=== PATIENT | male | born 1990 | race Caucasian/White ===

== ENCOUNTER 2016-09-24 10:40 | Emergency (ER) | payer MEDICAID, OTHER ==
[~2016-09-24] VITALS: Ht 172.7 cm; Wt 77.1 kg
[~2016-09-24 10:40] MED LIST: ASPIRIN; CEPH-38 PO; CYCL10TA9 PO; HYDR1TAB PO; IBUP-30 PO; IBUPROFEN; NAPR-243 PO; PENI500T PO; TRM50T PO
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
[2016-09-24] MEDS ORDERED: HYDROcodone/APAP 5 MG/325 MG (LORTAB) TAB PO STA (12:28)
[2016-09-24] MEDS ORDERED: BSS 15 ML IR ONE (12:30)
[2016-09-24] MEDS ORDERED: FLUORESCEIN (FLUOR-I-STRIPS) 1 MG STRP OU ONE (12:30)
[2016-09-24] MEDS ORDERED: TETRACAINE 0.5% OPHTH SOLN 15 ML BTL OU ONE (12:30)
[2016-09-24] MEDS ORDERED: RX-GENTAMICIN SULFATE 0.3% OP 5 ML BTL OP STA (12:45)
[2016-09-24] MEDS ORDERED: HYDR-3812 PO (12:49)
[2016-09-24] MEDS ORDERED: TETANUS,DIPTH,PERTUSS P/F (BOOSTRIX) 0.5 ML VIAL IM STA (12:50)
[2016-09-24 13:09] VITALS: BP 131/95
[2016-09-25] MEDS ORDERED: BSS 15 ML ONE (06:51)
[2016-09-25] MEDS ORDERED: TETRACAINE 0.5% OPHTH SOLN 15 ML BTL ONE (06:51)
== END 2016-09-24 13:09 | disposition home or self-care (01) ==
LOC: EDUNIT# 10:40 → ER 10:43
DX: S05.02XA Injury of conjunctiva and corneal abrasion without foreign body, left eye, initial encounter (principal); S05.01XA Injury of conjunctiva and corneal abrasion without foreign body, right eye, initial encounter; Z23 Encounter for immunization; F17.210 Nicotine dependence, cigarettes, uncomplicated; Y04.0XXA Assault by unarmed brawl or fight, initial encounter; Y99.8 Other external cause status
CPT/HCPCS: 90471; 90715; 99283

== ENCOUNTER 2019-02-02 15:15 | Emergency (ER) | payer OTHER ==
[~2019-02-02] VITALS: Ht 172.7 cm; Wt 81.6 kg
[~2019-02-02 15:15] MED LIST changes: +ACHD5005 PO
[2019-02-02] MEDS ORDERED: IBUPROFEN 800 MG (MOTRIN) TAB PO ONE (15:30)
--- NOTE | 2019-02-02 15:31 | ED Headache ---
General Chief Complaint: Head/Cervical Problems Stated Complaint: HEADACHE/L HAND NUMBNESS Nursing Triage Note: PT AMB TO TRIAGE WITH COMPLAINT OF HEADACHE. STATES COSTA STARTED AROUND 1430 ALONG WITH LEFT HAND NUMBNESS/TINGLING. STATES NUMBNESS/TINGLING HAS RESOLVED BY HEADACHE PERSIST. PT STATES THAT WHENEVER HE EAT CHOCOLATE, HE GETS AN "OPTIC MIGRAINE". DENIES EATING CHOCOLATE TODAY. Nursing Sepsis Screen: No Definite Risk Source: patient Exam Limitations: no limitations History of Present Illness Date Seen by Provider: February 02, 2019 Time Seen by Provider: 15:27 Initial Comments To ER per private vehicle with reports of a headache. This began around 2:30 today while driving home from work and was associated with some tingling and numbness to the left pointer and middle finger. He's never had that before but he does have a history of headaches. He states that typically he would get headaches after eating chocolate so he hasn't had chocolate in a long time. He states that he would get "optic migraines". He did have some "floaters" in his vision when he had this headache initially. Those are gone. The headache persists rated at 6 out of 10. There is no photophobia no fevers or chills no nausea or vomiting. The tingling numbness in the left hand and pointer/middle finger has resolved. He is not taking anything for the headache yet. Timing/Duration: 1 hour Severity/Quality: moderate Location: frontal Prior Headaches/Recent Trauma: occasional headaches Associated Symptoms: No confusion, No fatigue, No facial pain, No fever/chills , No flushing, No loss of consciousness, No nausea/vomiting, No nasal congestion , No rash, No seizures, No sinus infection, No stiff neck; vision changes Allergies and Home Medications Allergies Coded Allergies: No Known Drug Allergies (Unverified , 04/24/09) Patient Home Medication List Home Medication List Reviewed: Yes Review of Systems Review of Systems Constitutional: see HPI Eyes: No Symptoms Reported Ears, Nose, Mouth, Throat: no symptoms reported Respiratory: no symptoms reported Cardiovascular: no symptoms reported Past Jcphjgh-Fynujy-Xnsgod Hx Patient Social History Alcohol Use: Occasionally Uses Recreational Drug Use: No Smoking Status: Current Everyday Smoker Type Used: Cigarettes Recent Foreign Travel: No Contact w/Someone Who Travel: No Recent Infectious Disease Expo: No Recent Hopitalizations: No (NO HX) Immunizations Up To Date Tetanus Booster (TDap): Unknown PED Vaccines UTD: Yes Past Medical History Surgeries: No Respiratory: No Cardiac: No Neurological: No (OPTIC MIGRAINES) Gastrointestinal: No Family Medical History No Pertinent Family Hx Physical Exam Vital Signs Vital Signs - First Documented 02/02/19 15:17 Temp 98.5 Pulse 101 Resp 20 B/P (MAP) 159/82 (107) Pulse Ox 96 O2 Delivery Room Air Capillary Refill : Less Than 3 Seconds Height, Weight, BMI Height: 5'8.00" Weight: 180lbs. oz. 81.182377uj; BMI Method:Stated General Appearance: WD/WN, no apparent distress HEENT: PERRL/EOMI, normal ENT inspection, TMs normal Neck: non-tender, full range of motion Respiratory: no respiratory distress, no accessory muscle use Extremities: normal range of motion, non-tender Psychiatric: alert, oriented x 3 Crainal Nerves: normal hearing, normal speech, PERRL Coordination/Gait: normal finger to nose, normal gait Motor/Sensory: no motor deficit, no sensory deficit, no pronator drift, other ( color maker dyer are equal bilateral upper extremities, he is able to keep fingers abducted against resistance equally bilaterally.) Skin: normal color, warm/dry Progress/Results/Core Measures Results/Orders My Orders Orders - MIKE MATHEWS APRN Ct Head Wo (02/02/19 15:25) Ibuprofen Tablet (Motrin Tablet) (02/02/19 15:30) Medications Given in ED Current Medications Medications Dose Ordered Sig/Malloyr Route Start Time Stop Time Status Last Admin Dose Admin Ibuprofen 800 mg ONCE ONCE PO 02/02/19 15:30 02/02/19 15:31 DC 02/02/19 15:31 800 MG Vital Signs/I&O 02/02/19 15:17 Temp 98.5 Pulse 101 Resp 20 B/P (MAP) 159/82 (107) Pulse Ox 96 O2 Delivery Room Air Blood Pressure Mean: 107 Diagnostic Imaging Diagonstic Imaging: CT Comments NAME: MINDI OVIEDO [facility] REC#: [id number] PT STATUS: REG ER : 1990 PHYSICIAN: MIKE MATHEWS APRN ADMIT DATE: 02/02/19/ER Draft Date of Exam:02/02/19 CT HEAD WO INDICATION: Headache. Left arm tingling and numbness. TECHNIQUE: Routine non contrast-enhanced axial images were obtained from the skull base to the vertex. Auto Exposure Controls were utilized during the CT exam to meet ALARA standards for radiation dose reduction COMPARISON: None. FINDINGS: The ventricles and cortical sulci are normal in size and contour. There is no midline shift or mass-effect. No acute intra-axial hemorrhage is seen. There are no abnormal areas of increased or decreased density to suggest acute hemorrhage or edema. No extra-axial masses or collections are present. The bony calvarium is intact. The visualized paranasal sinuses are unremarkable. The mastoid air cells are clear. IMPRESSION: 1. No acute intracranial abnormality. No CT evidence of mass, acute infarct or intracranial hemorrhage. Dictated on workstation # [id number] Dict: 02/02/19 1559 Trans: 02/02/19 1606 [facility] [id number] Interpreted by: ALAN HURT MD Electronically signed by: Departure Impression Primary Impression: Atypical migraine Disposition: 01 HOME, SELF-CARE Condition: Stable Departure-Patient Inst. Decision time for Depature: 16:01 Referrals: [facility] (PCP/Family) Primary Care Physician Patient Instructions: Migraine Headache (DC) Add. Discharge Instructions: 1. Return to ER for any worsening or recurrent symptoms 2. Follow-up with your doctor later this week for recheck. All discharge instructions reviewed with patient and/or family. Voiced understanding. MIKE MATHEWS APRN February 02, 2019 15:31
--- NOTE | 2019-02-02 16:06 | Diagnostic Imaging Report ---
INDICATION: Headache. Left arm tingling and numbness. TECHNIQUE: Routine non contrast-enhanced axial images were obtained from the skull base to the vertex. Auto Exposure Controls were utilized during the CT exam to meet ALARA standards for radiation dose reduction COMPARISON: None. FINDINGS: The ventricles and cortical sulci are normal in size and contour. There is no midline shift or mass-effect. No acute intra-axial hemorrhage is seen. There are no abnormal areas of increased or decreased density to suggest acute hemorrhage or edema. No extra-axial masses or collections are present. The bony calvarium is intact. The visualized paranasal sinuses are unremarkable. The mastoid air cells are clear. IMPRESSION: 1. No acute intracranial abnormality. No CT evidence of mass, acute infarct or intracranial hemorrhage. Dictated by: Dictated on workstation # [id number]
[2019-02-02 16:21] VITALS: BP 159/82
== END 2019-02-02 16:21 | disposition home or self-care (01) ==
LOC: EDUNIT# 15:15 → ER 15:17
DX: G43.809 Other migraine, not intractable, without status migrainosus (principal); F17.210 Nicotine dependence, cigarettes, uncomplicated
CPT/HCPCS: 70450

== ENCOUNTER 2019-05-19 16:24 | Emergency (ER) | payer OTHER ==
[~2019-05-19] VITALS: Ht 172.7 cm; Wt 81.6 kg
[~2019-05-19 16:24] MED LIST changes: -BUP/EPI 0.5% 1:200,000 (SENSORCAINE) 30 ML VIAL INJ ONE; -HYDROcodone/APAP 5 MG/325 MG (LORTAB) TAB PO PRN; -HYDROmorphone 2 MG/ML VIAL (DILAUDID) IV ONE; -LACTATED RINGERS 1,000 ML IV PRN; -MEPERIDINE (DEMEROL) INJ 50 MG/ML IVP ONE; -ONDANSETRON 4 MG/2 ML (SDV) Z0FRAN IVP PRN; -PROMETHAZINE INJ 25 MG/ML (PHENERGAN) AMP IVP ONE; -ceFAZolin INJECTION 2,000 MG ONE; -morphine INJ 10 MG/ML 1ML (SYR OR VIAL) IVP ONE
[2019-05-19 16:45] LABS: BILIRUBIN,URINE NEGATIVE (NEGATIVE); CLARITY,URINE CLEAR; COLOR,URINE YELLOW; GLUCOSE, URINE (UA) NEGATIVE (NEGATIVE); KETONES,URINE NEGATIVE (NEGATIVE); LEUKOCYTE ESTERASE ,URINE NEGATIVE (NEGATIVE); NITRITE,URINE NEGATIVE (NEGATIVE); PH,URINE 5 (5-9); PROTEIN,URINE NEGATIVE (NEGATIVE); UROBILINOGEN,URINE NORMAL (NORMAL)
[2019-05-19] MEDS ORDERED: HOLD METFORMIN - RECEIVED CONTRAST 20 ML VIAL IV SCH (16:45)
[2019-05-19] MEDS ORDERED: NS 100 ML (IVPB) BAG IV ONE (16:45)
[2019-05-19] MEDS ORDERED: IOHEXOL 350 MG/ML 100 ML (OMNIPAQUE 350) VIAL IV ONE (16:45)
[2019-05-19 16:53] LABS: BASOPHILS # (AUTO) 0.1 10^3/uL (0.0-0.1); BASOPHILS % (AUTO) 1 % (0-10); EOSINOPHILS # (AUTO) 0.1 10^3/uL (0.0-0.3); EOSINOPHILS % (AUTO) 1 % (0-10); HEMATOCRIT 50 % (40-54); LYMPHOCYTES # (AUTO) 1.7 X 10^3 (1.0-4.0); LYMPHOCYTES % (AUTO) 10 % (12-44); MEAN CORPUSCULAR HEMOGLOBIN 30 PG (25-34); MEAN CORPUSCULAR HGB CONC 34 G/DL (32-36); MEAN CORPUSCULAR VOLUME 86 FL (80-99); MEAN PLATELET VOLUME 9.2 FL (7.4-10.4); MONOCYTES # (AUTO) 0.9 X 10^3 (0.0-1.0); MONOCYTES % (AUTO) 5 % (0-12); NEUTROPHILS # (AUTO) 13.9 X 10^3 (1.8-7.8); NEUTROPHILS % (AUTO) 83 % (42-75); PLATELET COUNT 282 10^3/uL (130-400); RED CELL DISTRIBUTION WIDTH 12.9 % (10.0-14.5); WHITE BLOOD COUNT 16.7 10^3/uL (4.3-11.0)
[2019-05-19 17:03] LABS: BACTERIA,URINE NEGATIVE /HPF; SQUAMOUS EPITHELIAL CELL,UR RARE /HPF
--- NOTE | 2019-05-19 17:05 | ED Abdominal Pain ---
General Chief Complaint: Abdominal/GI Problems Stated Complaint: ABD PAIN Nursing Triage Note: ARRIVED VIA AMB TO TRIAGE WITH RLQ PAIN STARTING AT 0930 Sepsis Screen: No Definite Risk Source of Information: Patient Exam Limitations: No Limitations History of Present Illness Date Seen by Provider: May 19, 2019 Time Seen by Provider: 17:02 Initial Comments To ER per private vehicle with reports of right lower quadrant abdominal pain that began this morning at about 9:30. He's had some increasing pain throughout the day. No fevers chills nausea or vomiting. Denies bowel changes. Denies dysuria. He hasn't eaten today because of the pain but he has been able to drink. He presented to [facility] who referred him to the emergency room for further evaluation of this abdominal pain. He rates his pain at 3 out of 10 currently but states that the bumps in the car ride worsened his pain and any physical activity seems to worsen the pain as well. Timing/Duration: Getting Worse Severity/Quality: Moderate Location: RLQ Radiation: No Radiation Activities at Onset: None Allergies and Home Medications Allergies Coded Allergies: chocolate flavor (Verified Adverse Reaction, Unknown, MIGRAINE, 05/19/19) Patient Home Medication List Home Medication List Reviewed: Yes Review of Systems Review of Systems Constitutional: see HPI EENTM: No Symptoms Reported Respiratory: No Symptoms Reported Cardiovascular: See HPI Gastrointestinal: See HPI, Abdominal Pain Genitourinary: No Symptoms Reported Musculoskeletal: no symptoms reported Skin: no symptoms reported Psychiatric/Neurological: No Symptoms Reported Endocrine: No Symptoms Reported Past Pqmobax-Jafslt-Oazbcj Hx Patient Social History Alcohol Use: Denies Use Recreational Drug Use: No Smoking Status: Current Everyday Smoker Type Used: Cigarettes Recent Foreign Travel: No Contact w/Someone Who Travel: No Recent Infectious Disease Expo: No Recent Hopitalizations: No (NO HX) Immunizations Up To Date Tetanus Booster (TDap): Unknown PED Vaccines UTD: Yes Past Medical History Surgeries: No Respiratory: No Cardiac: No Neurological: No (OPTIC MIGRAINES) Genitourinary: No Gastrointestinal: No HEENT: No Cancer: No Psychosocial: No Family Medical History No Pertinent Family Hx Physical Exam Vital Signs Vital Signs - First Documented 05/19/19 16:30 Temp 100.1 Pulse 104 Resp 16 B/P (MAP) 146/117 (127) Pulse Ox 97 O2 Delivery Room Air Capillary Refill : Less Than 3 Seconds Height/Weight/BMI Height: 5'8.00" Weight: 180lbs. oz. 81.458165ed; BMI Method:Stated General Appearance: WD/WN, no apparent distress HEENT: PERRL/EOMI, normal ENT inspection Respiratory: no respiratory distress, no accessory muscle use Gastrointestinal: normal bowel sounds, soft; No distended, No guarding, No rebound; tenderness, other (negative Rovsing's, negative obturator, negative rebound) Extremities: normal range of motion, non-tender Neurologic/Psychiatric: alert, normal mood/affect, oriented x 3 Skin: normal color, warm/dry Progress/Results/Core Measures Results/Orders Lab Results Laboratory Tests Test 05/19/19 16:38 05/19/19 16:45 Range/Units Urine Color YELLOW Urine Clarity CLEAR Urine pH 5 5-9 Urine Specific [place] 1.020 1.016-1.022 Urine Protein NEGATIVE NEGATIVE Urine Glucose (UA) NEGATIVE NEGATIVE Urine Ketones NEGATIVE NEGATIVE Urine Nitrite NEGATIVE NEGATIVE Urine Bilirubin NEGATIVE NEGATIVE Urine Urobilinogen NORMAL NORMAL MG/DL Urine Leukocyte Esterase NEGATIVE NEGATIVE Urine RBC (Auto) NEGATIVE NEGATIVE Urine RBC NONE /HPF Urine WBC NONE /HPF Urine Squamous Epithelial Cells RARE /HPF Urine Crystals NONE /LPF Urine Bacteria NEGATIVE /HPF Urine Casts NONE /LPF Urine Mucus NEGATIVE /LPF Urine Culture Indicated NO White Blood Count 16.7 H 4.3-11.0 10^3/uL Red Blood Count 5.77 4.35-5.85 10^6/uL Hemoglobin 17.0 13.3-17.7 G/DL Hematocrit 50 40-54 % Mean Corpuscular Volume 86 80-99 FL Mean Corpuscular Hemoglobin 30 25-34 PG Mean Corpuscular Hemoglobin Concent 34 32-36 G/DL Red Cell Distribution Width 12.9 10.0-14.5 % Platelet Count 282 130-400 10^3/uL Mean Platelet Volume 9.2 7.4-10.4 FL Neutrophils (%) (Auto) 83 H 42-75 % Lymphocytes (%) (Auto) 10 L 12-44 % Monocytes (%) (Auto) 5 0-12 % Eosinophils (%) (Auto) 1 0-10 % Basophils (%) (Auto) 1 0-10 % Neutrophils # (Auto) 13.9 H 1.8-7.8 X 10^3 Lymphocytes # (Auto) 1.7 1.0-4.0 X 10^3 Monocytes # (Auto) 0.9 0.0-1.0 X 10^3 Eosinophils # (Auto) 0.1 0.0-0.3 10^3/uL Basophils # (Auto) 0.1 0.0-0.1 10^3/uL Sodium Level 140 135-145 MMOL/L Potassium Level 3.9 3.6-5.0 MMOL/L Chloride Level 101 98-107 MMOL/L Carbon Dioxide Level 24 21-32 MMOL/L Anion Gap 15 H 5-14 MMOL/L Blood Urea Nitrogen 8 7-18 MG/DL Creatinine 1.05 0.60-1.30 MG/DL Estimat Glomerular Filtration Rate > 60 BUN/Creatinine Ratio 8 Glucose Level 91 70-105 MG/DL Calcium Level 10.2 H 8.5-10.1 MG/DL Corrected Calcium 8.5-10.1 MG/DL Total Bilirubin 0.7 0.1-1.0 MG/DL Aspartate Amino Transf (AST/SGOT) 26 5-34 U/L Alanine Aminotransferase (ALT/SGPT) 34 0-55 U/L Alkaline Phosphatase 75 40-136 U/L Total Protein 8.7 H 6.4-8.2 GM/DL Albumin 4.9 H 3.2-4.5 GM/DL My Orders Orders - MIKE MATHEWS APRN Cbc With Automated Diff (05/19/19 16:34) Comprehensive Metabolic Panel (05/19/19 16:34) Ua Culture If Indicated (05/19/19 16:34) Ed Iv/Invasive Line Start (05/19/19 16:34) Ct Abd/Pelv W (Appendicitis) (05/19/19 16:34) Iohexol Injection (Omnipaque 350 Mg/Ml 1 (05/19/19 16:45) Received Contrast (Hold Metformin- Contr (05/19/19 16:45) Ns (Ivpb) (Sodium Chloride 0.9% Ivpb Bag (05/19/19 16:45) Vital Signs/I&O 05/19/19 16:30 Temp 100.1 Pulse 104 Resp 16 B/P (MAP) 146/117 (127) Pulse Ox 97 O2 Delivery Room Air Blood Pressure Mean: 127 Diagnostic Imaging Diagonstic Imaging: CT Comments NAME: MINDI OVIEDO [facility] REC#: [id number] PT STATUS: REG ER : 1990 PHYSICIAN: MIKE MATHEWS APRN ADMIT DATE: 05/19/19/ER Draft Date of Exam:05/19/19 CT ABD/PELV W (APPENDICITIS) PROCEDURE: CT abdomen and pelvis with contrast, rule out appendicitis. TECHNIQUE: Multiple contiguous axial images were obtained through the abdomen and pelvis after the administration of intravenous contrast. INDICATION: Right lower quadrant pain for 9 hours. Elevated white blood cell count. COMPARISON: 03/30/2012 FINDINGS: Lower chest: The lung bases are clear. No pericardial or pleural effusion. Peritoneum: No free intraperitoneal air or fluid. Liver and biliary system: The liver is normal. Cholelithiasis. No CT features of acute cholecystitis or biliary obstruction. Spleen and Pancreas: Spleen is normal. The pancreas enhances normally without mass lesion or peripancreatic inflammatory changes. Adrenals: Normal. tract: The kidneys enhance normally without suspicious mass or obstruction. Urinary bladder is decompressed, limiting assessment. Prostate is normal in appearance. GI tract: Stomach is partially filled with fluid and there is no wall thickening. No bowel obstruction. No pericolonic inflammatory changes. Appendix is mildly dilated measuring approximately 9 mm. A small amount of periappendiceal inflammation is present. No abscess formation or perforation. Vasculature and Lymph nodes: Normal caliber aorta. No abdominal or pelvic lymphadenopathy. Musculoskeletal: No concerning osseous lesion. IMPRESSION: ? 1. Acute appendicitis is without complication. Specifically, no rupture, abscess or bowel obstruction. Dictated on workstation # [id number] Dict: 05/19/19 1730 Trans: 05/19/19 1744 [facility] [id number] Interpreted by: MINAL BANDA MD Electronically signed by: Departure Impression Primary Impression: Acute appendicitis Qualified Codes: K35.30 - Acute appendicitis with localized peritonitis, without perforation or gangrene Disposition: ADMITTED INPATIENT Condition: Stable Admissions Decision to Admit Reason: Admit from ER (General) Decision to Admit/Date: May 19, 2019 Time/Decision to Admit Time: 17:35 Departure-Patient Inst. Referrals: [facility] (PCP/Family) Primary Care Physician MIKE MATHEWS APRN May 19, 2019 17:05
[2019-05-19 17:13] LABS: ALANINE AMINOTRANSFERASE 34 U/L (0-55); ALBUMIN 4.9 GM/DL (3.2-4.5); ALKALINE PHOSPHATASE 75 U/L (40-136); BILIRUBIN,TOTAL 0.7 MG/DL (0.1-1.0); BUN/CREATININE RATIO 8; CALCIUM 10.2 MG/DL (8.5-10.1); CARBON DIOXIDE 24 MMOL/L (21-32); CHLORIDE 101 MMOL/L (98-107); CREATININE SERUM 1.05 MG/DL (0.60-1.30); GFR ESTIMATED > 60; GLUCOSE 91 MG/DL (70-105); POTASSIUM 3.9 MMOL/L (3.6-5.0); SODIUM 140 MMOL/L (135-145); TOTAL PROTEIN 8.7 GM/DL (6.4-8.2)
--- NOTE | 2019-05-19 17:45 | Diagnostic Imaging Report ---
PROCEDURE: CT abdomen and pelvis with contrast, rule out appendicitis. TECHNIQUE: Multiple contiguous axial images were obtained through the abdomen and pelvis after the administration of intravenous contrast. INDICATION: Right lower quadrant pain for 9 hours. Elevated white blood cell count. COMPARISON: 03/30/2012 FINDINGS: Lower chest: The lung bases are clear. No pericardial or pleural effusion. Peritoneum: No free intraperitoneal air or fluid. Liver and biliary system: The liver is normal. Cholelithiasis. No CT features of acute cholecystitis or biliary obstruction. Spleen and Pancreas: Spleen is normal. The pancreas enhances normally without mass lesion or peripancreatic inflammatory changes. Adrenals: Normal. tract: The kidneys enhance normally without suspicious mass or obstruction. Urinary bladder is decompressed, limiting assessment. Prostate is normal in appearance. GI tract: Stomach is partially filled with fluid and there is no wall thickening. No bowel obstruction. No pericolonic inflammatory changes. Appendix is mildly dilated measuring approximately 9 mm. A small amount of periappendiceal inflammation is present. No abscess formation or perforation. Vasculature and Lymph nodes: Normal caliber aorta. No abdominal or pelvic lymphadenopathy. Musculoskeletal: No concerning osseous lesion. IMPRESSION: 1. Acute appendicitis is without complication. Specifically, no rupture, abscess or bowel obstruction. Dictated by: Dictated on workstation # [id number]
--- NOTE | 2019-05-19 18:48 | Consultation - Surgery ---
History of Present Illness History of Present Illness Patient Consulted On(renata/time) 05/19/19 18:42 Time Seen by Provider: 18:31 History of Present Illness Surgery asked to consult regarding RLQ pain. HPI per ED: To ER per private vehicle with reports of right lower quadrant abdominal pain that began this morning at about 9:30. He's had some increasing pain throughout the day. No fevers chills nausea or vomiting. Denies bowel changes. Denies dysuria. He hasn't eaten today because of the pain but he has been able to drink. He presented to count [facility] the [facility] who referred him to the emergency room for further evaluation of this abdominal pain. He rates his pain at 3 out of 10 currently but states that the bumps in the car ride worsened his pain and any physical activity seems to worsen the pain as well. Timing/Duration: Getting Worse Severity/Quality: Moderate Location: RLQ Radiation: No Radiation Activities at Onset: None When I spoke to pt he states that he thought he just had gas pain, took tums and then a shower which seemed to help; but then pain came right back. He feels a little nauseous now but thinks it is because he is hungry; "couldn't eat all day because of the pain". He described the pain as sharp and stabbing. It started in upper abdomen, moved to middle and then down into RLQ. Allergies and Home Medications Allergies Coded Allergies: chocolate flavor (Verified Adverse Reaction, Unknown, MIGRAINE, 05/19/19) Patient Home Medication List Home Medication List Reviewed: Yes Past Toscfrr-Kgemdc-Myjdlc Hx Patient Social History Alcohol Use: Denies Use Recreational Drug Use: No Smoking Status: Current Everyday Smoker Type Used: Cigarettes Recent Foreign Travel: No Contact w/Someone Who Travel: No Recent Infectious Disease Expo: No Recent Hopitalizations: No (NO HX) Immunizations Up To Date Tetanus Booster (TDap): Unknown PED Vaccines UTD: Yes Surgeries History of Surgeries: No Respiratory History of Respiratory Disorde: No Cardiovascular History of Cardiac Disorders: No Neurological History of Neurological Disord: No (OPTIC MIGRAINES) Genitourinary History of Genitourinary Disor: No Gastrointestinal History of Gastrointestinal Di: No Musculoskeletal History of Musculoskeletal Dis: No Endocrine History of Endocrine Disorders: No HEENT History of HEENT Disorders: No Loss of Vision: Denies Hearing Impairment: Denies Cancer History of Cancer: No Psychosocial History of Psychiatric Problem: No Family Medical History Significant Family History: Diabetes (grandmother), Hypertension (Father) Review of Systems-General Constitutional: No chills, No diaphoresis; weakness EENTM: No blurred vision, No mouth swelling, No epistaxis Respiratory: No cough, No dyspnea on exertion, No hemoptysis, No short of breath, No stridor Cardiovascular: No chest pain, No edema, No palpitations Gastrointestinal: abdominal pain; No diarrhea, No hematemesis, No melena; nausea; No vomiting Genitourinary: No dysuria, No frequency, No hematuria Musculoskeletal: No joint pain, No joint swelling, No muscle pain, No muscle stiffness Skin: No change in color, No change in hair/nails Psychiatric/Neurological: Denies Anxiety, Denies Depressed, Denies Seizure, Denies Tremors Other Pt denies abnormal bleeding or bruising Physical Exam-General Problems Physical Exam Vital Signs Vital Signs - First Documented 05/19/19 16:30 Temp 100.1 Pulse 104 Resp 16 B/P (MAP) 146/117 (127) Pulse Ox 97 O2 Delivery Room Air Capillary Refill : Less Than 3 Seconds General Appearance: WD/WN, no apparent distress Eyes: Bilateral Eye PERRL, Bilateral Eye EOMI HEENT: pharynx normal; No scleral icterus (R), No scleral icterus (L) Neck: non-tender, full range of motion, supple, normal inspection Respiratory: chest non-tender, lungs clear, normal breath sounds, no respiratory distress, no accessory muscle use Cardiovascular: regular rate, rhythm, no edema, no murmur Gastrointestinal: normal bowel sounds, soft, no organomegaly, no pulsatile mass, tenderness (RLQ ) Back: no CVA tenderness, no vertebral tenderness Extremities: normal range of motion, non-tender, normal inspection, no pedal edema, no calf tenderness, normal capillary refill Neurologic/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, no motor/sensory deficits, alert, normal mood/affect, oriented x 3 Skin: normal color, warm/dry Lymphatic: no adenopathy (neck, axilla or groin) Data Review Labs Laboratory Tests 05/19/19 16:38: Urine Color YELLOW, Urine Clarity CLEAR, Urine pH 5, Urine Specific [place] 1.020, Urine Protein NEGATIVE, Urine Glucose (UA) NEGATIVE, Urine Ketones NEGATIVE, Urine Nitrite NEGATIVE, Urine Bilirubin NEGATIVE, Urine Urobilinogen NORMAL, Urine Leukocyte Esterase NEGATIVE, Urine RBC (Auto) NEGATIVE, Urine RBC NONE, Urine WBC NONE, Urine Squamous Epithelial Cells RARE, Urine Crystals NONE, Urine Bacteria NEGATIVE, Urine Casts NONE, Urine Mucus NEGATIVE, Urine Culture Indicated NO 05/19/19 16:45: White Blood Count 16.7H, Red Blood Count 5.77, Hemoglobin 17.0, Hematocrit 50, Mean Corpuscular Volume 86, Mean Corpuscular Hemoglobin 30, Mean Corpuscular Hemoglobin Concent 34, Red Cell Distribution Width 12.9, Platelet Count 282, Mean Platelet Volume 9.2, Neutrophils (%) (Auto) 83H, Lymphocytes (%) (Auto) 10L , Monocytes (%) (Auto) 5, Eosinophils (%) (Auto) 1, Basophils (%) (Auto) 1, Neutrophils # (Auto) 13.9H, Lymphocytes # (Auto) 1.7, Monocytes # (Auto) 0.9, Eosinophils # (Auto) 0.1, Basophils # (Auto) 0.1, Sodium Level 140, Potassium Level 3.9, Chloride Level 101, Carbon Dioxide Level 24, Anion Gap 15H, Blood Urea Nitrogen 8, Creatinine 1.05, Estimat Glomerular Filtration Rate > 60, BUN/Creatinine Ratio 8, Glucose Level 91, Calcium Level 10.2H, Corrected Calcium , Total Bilirubin 0.7, Aspartate Amino Transf (AST/SGOT) 26, Alanine Aminotransferase (ALT/SGPT) 34, Alkaline Phosphatase 75, Total Protein 8.7H, Albumin 4.9H Assessment/Plan Assessment/Plan Assessment/Plan Acute appendicitis Plan is NPO, IV fluids, IV abx, pain control and to OR for Laparoscopic Appen dectomy possible open. I discussed risks and complications of procedure with pt; including but not limited to pain, bleeding, infection, scar, damage to intestine and need for further procedure. All questions answered to his satisfaction. KRYSTA VEGA DO May 19, 2019 18:48
[2019-05-19] MEDS ORDERED: BUP/EPI 0.5% 1:200,000 (MARCAINE) 10ML VIAL IJ ONE (18:52)
[2019-05-19 19:00] VITALS: BP 136/109
[2019-05-19] MEDS ORDERED: ONDANSETRON 4 MG/2 ML (SDV) Z0FRAN ONE ×2 (19:03→20:31)
[2019-05-19] MEDS ORDERED: ROCURONIUM 10 MG/ML 5 ML SYRINGE IV ONE (19:03)
[2019-05-19] MEDS ORDERED: LIDOCAINE PF 2% 5 ML (XYLOCAINE) VIAL ONE (19:03)
[2019-05-19] MEDS ORDERED: proPOfol 200 MG/20 ML (DIPRIVAN) VIAL IV ONE (19:03)
[2019-05-19] MEDS ORDERED: fentaNYL INJECTION 100 MCG/2 ML AMP ONE (19:03)
[2019-05-19] MEDS ORDERED: MIDAZOLAM 2 MG/2 ML (VERSED) VIAL ONE (19:05)
[2019-05-19] MEDS ORDERED: SEVOFLURANE (ULTANE) 15 ML INHAL SOLN ONE ×4 (19:06→20:12)
[2019-05-19] MEDS ORDERED: DEXAMETHASONE 10 MG/ML (DECADRON) 1 ML VIAL ONE (19:17)
[2019-05-19] MEDS ORDERED: NEOSTIGMINE 3 MG/3 ML VIAL ONE (19:57)
[2019-05-19] MEDS ORDERED: GLYCOPYRROLATE 0.2 MG/ML (ROBINUL) 2 ML VIAL ONE (19:57)
[2019-05-19] MEDS ORDERED: ACHD5005 PO (20:14)
[2019-05-19] MEDS ORDERED: morphine INJ 10 MG/ML 1ML (SYR OR VIAL) ONE (20:31)
--- NOTE | 2019-05-19 21:29 | OPERATIVE REPORT ---
DATE OF SERVICE: PREOPERATIVE DIAGNOSIS: Acute appendicitis. POSTOPERATIVE DIAGNOSES: Acute appendicitis. Right indirect inguinal hernia. PROCEDURE: Laparoscopic appendectomy. SURGEON: Gokul Moscoso DO. PREP ROOM SUPERVISOR: Omar Garcia MS3. ANESTHESIA: General endotracheal tube. SPECIMEN: Appendix. BLOOD LOSS: Scant. FLUIDS: Per anesthesia. POSTOPERATIVE CONDITION: Stable. INDICATION FOR PROCEDURE: The patient is a 29-year-old male who has pain in the right lower quadrant, started upper epigastric and then moved into the right lower quadrant, had a 16,000 white count and his CAT scan was read as acute appendicitis. FINDINGS: The patient had inflamed appendix, thickened and firm, looked like acute appendicitis. No perforation. PROCEDURE NOTE: After informed consent was obtained, the patient was brought to the operating room, placed on the table in supine position, sterilely prepped and draped in normal fashion. Local lidocaine was used to infiltrate the skin above the umbilicus. I made the incision with #11 blade, carried down through the skin into subcutaneous tissue, deepened down to subcutaneous tissue with Bovie electrocautery down to fascia. Fascia incised with Bovie electrocautery, then bluntly entered the abdomen, swept a finger around, placed 0 Vicryl [id number] suture, then placed 11 mm trocar port under direct visualization. Created pneumoperitoneum and then placed 2 more ports in normal fashion using local lidocaine, 11-blade for stab incision and VersaStep system, all done under direct visualization, one suprapubically and one in the left lower quadrant. The patient was then placed in Trendelenburg and rotated to left. I then moved the intestine out of the way, able to find the appendix, it looked inflamed. It was firm and hard to grasp, grasped the mesoappendix and then started coming across the mesoappendix with LigaSure, clamping, coagulating and transecting in this fashion, freeing up the appendix, it was just attached to the cecum and coming through the appendiceal artery with the LigaSure, clamping and coagulating and transecting it. Once the appendix was just attached to the cecum, switched to 5 mm camera, brought the Endo-BRYAN across through the supraumbilical port and then placed it across the base of appendix, clamped and fired, thereby transecting it and removed this and then placed a bag in the abdomen, placed the appendix in the bag and then removed this through the supraumbilical incision. Placed the port back in the abdomen, copiously irrigated with normal saline. There was no bleeding. Took a picture of the staple line, had noted the right inguinal hernia was indirect, took a picture of this, suctioned out all the fluid and then placed the patient supine. He had been reverse Trendelenburg and rotated left. Removed all ports under direct visualization, allowed pneumoperitoneum to escape, closed supraumbilical incision, closing the fascia with 0 Vicryl suture previously placed. Copiously irrigated all incisions with normal saline and closed the 2 small 5 mm incisions with a single interrupted 4-0 undyed Monocryl subcuticular stitch. Closed the supraumbilical incision with 3 interrupted 4-0 undyed Monocryl subcuticular stitches. Area was cleaned and dried. Dermabond placed as well as Band-Aids. The patient then transferred to recovery room in stable condition. Sponge, instrument and needle count correct at the end of the case. Job ID: [id number] DocumentID: [id number] Dictated Date: 05/19/2019 21:08:40 [employer] Mill Worker Date: 05/19/2019 21:29:08 Dictated By: DO BRAULIO GARSIA
== END 2019-05-19 19:00 | disposition other institution (70) ==
LOC: EDUNIT# 16:24 → ER 16:25
DX: K35.80 Unspecified acute appendicitis (principal); G43.B0 Ophthalmoplegic migraine, not intractable; F17.210 Nicotine dependence, cigarettes, uncomplicated; Z91.018 Allergy to other foods
CPT/HCPCS: 36415; 74177; 80053; 81000; 85025

== ENCOUNTER → 2019-05-19 | Day surgery (SDC) | payer OTHER ==
[~2019-05-19] VITALS: Ht 172.7 cm; Wt 82.1 kg
[2019-05-19] VITALS (8 sets, daily range): BP systolic 114–135; BP diastolic 75–94
[~2019-05-19] MED LIST changes: +BUP/EPI 0.5% 1:200,000 (SENSORCAINE) 30 ML VIAL INJ ONE; +HYDROcodone/APAP 5 MG/325 MG (LORTAB) TAB PO PRN; +HYDROmorphone 2 MG/ML VIAL (DILAUDID) IV ONE; +LACTATED RINGERS 1,000 ML IV PRN; +MEPERIDINE (DEMEROL) INJ 50 MG/ML IVP ONE; +ONDANSETRON 4 MG/2 ML (SDV) Z0FRAN IVP PRN; +PROMETHAZINE INJ 25 MG/ML (PHENERGAN) AMP IVP ONE; +ceFAZolin INJECTION 2,000 MG ONE; +morphine INJ 10 MG/ML 1ML (SYR OR VIAL) IVP ONE
--- NOTE | 2019-05-19 20:12 | Progress Note-Post Operative ---
Post-Operative Progess Note Surgeon (s)/Submarine Operator (s) Surgeon KRYSTA VEGA DO Submarine Operator: Omar Garcia, MS III Pre-Operative Diagnosis acute appy Post-Operative Diagnosis acute appy Procedure & Operative Findings Date of Procedure 05/19/19 Procedure Performed/Findings lap appy Anesthesia Type GET Estimated Blood Loss Estimated blood loss (mL): scant Specimens/Packing Specimens Removed KRYSTA Mensah DO May 19, 2019 20:12
--- NOTE | 2019-05-19 20:15 | Discharge Inst-Surgical ---
Discharge Inst-Surgical Depart Medication/Instructions New, Converted or Re-Newed RX: RX Given to Pt/Family Patient Instructions Follow up Appt: Make appointment for 1 week. [phone] Instructions: No lifting greater than 20 pounds. No strenuous activity. May shower in 24 hours, no tub bath or soaking. Use incentive spirometer at home as directed. No Smoking Skin/Wound Care: May remove bandages in am. You need to leave the Dermabond on incision it will fall off on it's own. Symptoms to Report: Appetite Changes, Extremity Discoloration, Numbness/Tingling, Swelling Increased, Bleeding Excessive, Eyesight Changes, Pain Increased, Urine Color Change, Constipation(Persistent), Fever over 101 degree F, Pain/Pressure in chest, Urinating Difficulty, Cough Up/Vomit Blood, Heart Beat Irreg/Pounding, Pain/Pressure in jaw, Cramps in feet or legs, Lightheadedness, Pain/Pressure in shoulder, Diarrhea(Persistent), Memory Changes Suddenly, Questions/Concerns, Weight gain consecutive days, Dizziness/Fainting, Nausea/Vomiting, Shortness of Breath, Weight gain over 2 pounds If questions or concerns contact your physician Or seek help at emergency department. Activity Activity as Tolerated: Yes Activity Instructions: Avoid Stress to Incision Driving Instructions: No Driving/Refer to Dr. Boswell Discharge Diet: No Restrictions Diet After 24 Hours: Clear Liquid if Nauseous If Any Problems/Questions/Issu: Contact Your Physician, Go to Emergency Room Skin/Wound Care Infection Signs and Symptoms: Increased Redness, Foul Odor of Wound, Increased Drainage, Skin Itchy or Has a Rash, Increased Swelling, Temperature Above 101 F Wound Care Comment: heating pad to shoulder or neck for pain Bathing Instructions: Shower Stitches/Ezra/Dermabond Dis: Dermabond Ice Pack: Ice On and Off Site KRYSTA VEGA DO May 19, 2019 20:15
--- NOTE | 2019-05-19 21:25 | NUR ---
PT ARRIVED ON FLOOR VIA CART AT 2125 ACCOMPANIED BY STAFF. PT ORIENTED TO SURROUNDINGS. ASSESSMENT DONE. THREE LAP SITES OPEN TO AIR WITH DERMABOND PRESENT, PATIENT REPORTS 8/10 PAIN.
--- NOTE | 2019-05-19 21:56 | NUR ---
PT REPORTS PAIN 05/02 AFTER PROCEDURE, DR. VEGA CONTACTED, ORDERED HYDROCODONE Q6
--- NOTE | 2019-05-19 23:50 | NUR ---
MINDI OVIEDO JR demonstrates understanding of discharge instructions and accurately returns instructions upon questioning. Copy of Post-Discharge Instructions and Medication Discharge Instructions given to PATIENT. MINDI OVIEDO JR is able to manage continuing needs after discharge. Patients belongings returned to PT AND HIS . Skin dry and intact; no breakdown noted. Patient discharged from MED SURG on 05/19/19 at 2350. MINDI OVIEDO JR left floor ABULATORY, accompanied by .
== END ==
LOC: CATH 18:03
PROVIDERS: ATTEND Surgery
DX: K35.80 Unspecified acute appendicitis (principal); K40.90 Unilateral inguinal hernia, without obstruction or gangrene, not specified as recurrent; F17.210 Nicotine dependence, cigarettes, uncomplicated; K21.9 Gastro-esophageal reflux disease without esophagitis; G43.909 Migraine, unspecified, not intractable, without status migrainosus; Z91.018 Allergy to other foods; Z83.3 Family history of diabetes mellitus; Z82.49 Family history of ischemic heart disease and other diseases of the circulatory system
CPT/HCPCS: 88304